=== PATIENT | female | born 1960 | race Caucasian/White ===

== ENCOUNTER 2018-06-07 09:09 | Day surgery (SDC) | payer MEDICARE, OTHER, MEDICAID ==
[2018-06-07] MEDS ORDERED: FENTAnyl 50 MCG/ML VIAL (10:31)
[2018-06-07] MEDS ORDERED: PROPOFOL 20 ML (10:32)
[2018-06-07] MEDS ORDERED: MIDAZOLAM 1 MG/ML 2 ML INJ (10:32)
[2018-06-07] MEDS ORDERED: LIDOCAINE 2% (SDV) 5 ML INJ (10:32)
[2018-06-07] MEDS ORDERED: ETOMIDATE 20 MG INJ (10:40)
== END 2018-06-07 11:29 | disposition home or self-care (01) ==
LOC: GIL 09:09
DX: Z12.11 Encounter for screening for malignant neoplasm of colon (principal); K64.8 Other hemorrhoids; K44.9 Diaphragmatic hernia without obstruction or gangrene; I10 Essential (primary) hypertension; E11.9 Type 2 diabetes mellitus without complications; E66.9 Obesity, unspecified; Z68.35 Body mass index [BMI] 35.0-35.9, adult
CPT/HCPCS: 43239; 88305